=== PATIENT | female | born 1995 | race Two or more races ===

== ENCOUNTER → 2019-06-05 | Outpatient (CLI) | payer OTHER | END | disposition home or self-care (01) | LOC: PRENATAL 06-04 11:00 | DX: O35.3XX1 Maternal care for (suspected) damage to fetus from viral disease in mother, fetus 1 (principal); O35.0XX1 Maternal care for (suspected) central nervous system malformation in fetus, fetus 1 ==

== ENCOUNTER 2019-08-25 12:09 | Inpatient (IN) | payer OTHER ==
[~2019-08-25] VITALS: Ht 157.5 cm; Wt 70.8 kg
[2019-09-18] MEDS ORDERED: PRENATAL CAPLE1 EAC1 PO (07:20)
== END 2019-09-20 14:02 | disposition home or self-care (01) | DRG 807 ==
LOC: LDR 09-18 06:40 → OB/GYN 09-18 15:25
PROVIDERS: ADMIT Obstetrics & Gynecology
PROC: 10E0XZZ Delivery of Products of Conception, External Approach (ICD-10-PCS; principal; 2019-09-18)
PROC: 10907ZC Drainage of Amniotic Fluid, Therapeutic from Products of Conception, Via Natural or Artificial Opening (ICD-10-PCS; 2019-09-18)
PROC: 4A1HXFZ Monitoring of Products of Conception, Cardiac Rhythm, External Approach (ICD-10-PCS; 2019-09-18)
DX: O80 Encounter for full-term uncomplicated delivery (principal); Z37.0 Single live birth; Z3A.40 40 weeks gestation of pregnancy